=== PATIENT | female | born 1955 | race Caucasian/White ===

== ENCOUNTER → 2021-09-17 | Outpatient (CLI) | payer MEDICARE ==
--- NOTE | 2021-09-17 10:21 | KCIC ---
EXAM: CT CHEST WITHOUT CONTRAST (LDCT LUNG CANCER SCREENING). HISTORY: Risk factors for pulmonary malignancy. Nicotine dependence. Smoker for 40 years TECHNIQUE: CT of the chest was performed without intravenous contrast using a low-dose lung screening protocol. Findings analysis is based on ACR Lung-RADS v1.1. *One or more of the following individual ized dose reduction techniques were utilized for this examination: 1. Automated exposure control. 2. Adjustment of the mA and/or kV according to patient size. 3. Use of iterative reconstruction technique. COMPARISON: None. FINDINGS: Thyroid gland is normal in appearance. There are no pathologically enlarged axillary, mediastinal or hilar lymph nodes. Heart size is within normal limits. Thoracic aorta is normal in course and caliber. There is no significant pericardial e ffusion. Thoracic esophagus is normal in appearance. Anterior chest wall appears intact. Minor boo ry artery vascular calcifications are present. Mild to moderate centrilobular pulmonary emphysema this changes are present predominantly involving t he upper lobes. Bibasilar dependent atelectasis. There is a 4 mm solid noncalcified pulmonary nodule in the right lung apex (series 2, image 10).. There are no pleural effusions, pulmonary vascular yrn estion or pneumothorax. Lungs are clear without focal airspace consolidation. Central airways are bob ar. Visualized portions of the upper abdomen are normal in appearance within limitations of a noncontrast examination. No suspicious osseous abnormality. Faint lucencies involving the lower thoracic vertebral bodies favo r osseous hemangioma in the absence of underlying malignancy. No paraspinal soft tissue mass. IMPRESSION/RECOMMENDATION: 1. ACR Lung-RADS category: 2, benign appearance or behavior. 4 mm solid noncalcified pulmonary nodule identified in the right lung apex. 2. Continue annual screening with LDCT in 12 months. 3. Mild to moderate centrilobular pulmonary emphysema. Electronically signed by: Leela Blanco MD (09/17/2021 10:18 AM) [id number]
== END ==
LOC: KCIC CT 09:38
PROVIDERS: ATTEND Family Medicine
DX: Z12.2 Encounter for screening for malignant neoplasm of respiratory organs (principal); R91.1 Solitary pulmonary nodule; J43.2 Centrilobular emphysema; J98.11 Atelectasis; F17.211 Nicotine dependence, cigarettes, in remission; I25.10 Atherosclerotic heart disease of native coronary artery without angina pectoris
CPT/HCPCS: 71271